=== PATIENT | female | born 1955 | race Caucasian/White ===

== ENCOUNTER 2017-11-13 07:04 | Emergency (ER) | payer OTHER ==
[~2017-11-13] VITALS: Ht 162.6 cm; Wt 55.8 kg
--- NOTE | 2017-11-13 09:11 | Diagnostic Imaging Report ---
RIGHT FOREARM X-RAY - 3 VIEWS, RIGHT FOREARM X-RAY, 2 views HISTORY: \S\TRIP FALL \[id number] \[id number] COMPARISON: None available. FINDINGS: Bones: No acute displaced fracture. Mild cortical irregularity within the dorsal aspect of the radius is seen only on one view and may be artifactual. Mild deformity of the scaphoid may be due to remote trauma. Osseous alignment is within normal limits. Joints: Degenerative changes of the first carpometacarpal joint. Soft tissues: The soft tissues appear unremarkable. IMPRESSION: No acute displaced fractures. Mild cortical irregularity of the proximal radius seen only on one view may be artifactual. If pain persists, consider repeat x-rays in 10 days with oblique views. Signed by: Dr. Kay Villarreal M.D. on 11/13/2017 9:07 AM
--- NOTE | 2017-11-13 09:11 | Diagnostic Imaging Report ---
RIGHT FOREARM X-RAY - 3 VIEWS, RIGHT FOREARM X-RAY, 2 views HISTORY: \S\TRIP FALL \[id number] \[id number] COMPARISON: None available. FINDINGS: Bones: No acute displaced fracture. Mild cortical irregularity within the dorsal aspect of the radius is seen only on one view and may be artifactual. Mild deformity of the scaphoid may be due to remote trauma. Osseous alignment is within normal limits. Joints: Degenerative changes of the first carpometacarpal joint. Soft tissues: The soft tissues appear unremarkable. IMPRESSION: No acute displaced fractures. Mild cortical irregularity of the proximal radius seen only on one view may be artifactual. If pain persists, consider repeat x-rays in 10 days with oblique views. Signed by: Dr. Kay Villarreal M.D. on 11/13/2017 9:07 AM
== END 2017-11-13 10:09 | disposition home or self-care (01) ==
LOC: ER 07:04
DX: S63.521A Sprain of radiocarpal joint of right wrist, initial encounter (principal); M32.9 Systemic lupus erythematosus, unspecified; I73.00 Raynaud's syndrome without gangrene
CPT/HCPCS: 99284

== ENCOUNTER 2023-05-20 08:30 | Inpatient (IN) | payer MEDICARE ==
[~2023-05-20] VITALS: Ht 162.6 cm; Wt 44.9 kg
[2023-05-20] MEDS ORDERED: ONDANSETRON HCL INJ 2MG/ML 2ML 2 MG/ML VIAL IV STA (08:41)
[2023-05-20] MEDS ORDERED: LACTATED RINGER'S 1,000 ML IV ONE (08:45)
[2023-05-20 10:17] LABS: BASOPHILS % 0.4 % (0.0-1.0); EOSINOPHILS % 0.6 % (0.0-6.0); HEMOGLOBIN 16.8 g/dL (12.0-16.0); LYMPHOCYTES # (AUTO) 0.9 (1.0-3.2); LYMPHOCYTES % 12.1 % (18.0-39.1); MEAN CORPUSCULAR HEMOGLOBIN 32.9 pg (28-32); MEAN CORPUSCULAR HGB CONC 39.1 g/dL (31-35); MEAN CORPUSCULAR VOLUME 84.1 fL (81-99); MONOCYTES # (AUTO) 0.6 (0.2-0.8); MONOCYTES % 8.4 % (4.4-11.3); NEUTROPHILS # (AUTO) 5.5 (2.1-6.9); NEUTROPHILS % 77.8 % (38.7-80.0); PLATELET COUNT 258 x10e3/uL (140-360); RED BLOOD COUNT 5.11 x10e6/uL (3.6-5.1); RED CELL DISTRIBUTION WIDTH 10.7 % (11.7-14.4); WHITE BLOOD COUNT 7.01 x10e3/uL (4.8-10.8)
[2023-05-20 10:45] LABS: CLARITY,URINE CLEAR (CLEAR); COLOR,URINE YELLOW (YELLOW); LEUKOCYTE ESTERASE ,URINE NEGATIVE (NEGATIVE); NITRITE,URINE NEGATIVE (NEGATIVE); PROTEIN,URINE DIPSTICK NEGATIVE (NEGATIVE)
[2023-05-20 10:46] LABS: BACTERIA,URINE MODERATE /HPF; EPITHELIAL CELLS,URINE FEW /LPF; KETONES,URINE 2+ (NEGATIVE); RBC,URINE 0-5 /HPF (0-5); URINE UROBILINOGEN 1 mg/dL (0.2 - 1); WBC,URINE (MAN) 0-5 /HPF (0-5)
[2023-05-20 10:49] LABS: ALANINE AMINOTRANSFERASE 23 IU/L (0-55); ALBUMIN 4.7 g/dL (3.5-5.0); ALBUMIN/GLOBULIN RATIO 1.6 (0.8-2.0); ALKALINE PHOSPHATASE 121 IU/L (40-150); ANION GAP 19.2 mmol/L (8-16); BLOOD UREA NITROGEN 12 mg/dL (7-26); BUN/CREATININE RATIO 16 (6-25); CALCIUM 10.7 mg/dL (8.4-10.2); CARBON DIOXIDE 20 mmol/L (22-29); CHLORIDE 92 mmol/L (98-107); CREATINE KINASE 77 IU/L (29-168); CREATININE, SERUM 0.74 mg/dL (0.57-1.11); GLUCOSE 114 mg/dL (74-118); POTASSIUM 4.2 mmol/L (3.5-5.1); SODIUM 127 mmol/L (136-145)
[2023-05-20] MEDS ORDERED: SODIUM CHLORIDE 0.9% 100 ML ONE (11:55)
[2023-05-20] MEDS ORDERED: IOPAMIDOL 370 MG/ML 100 ML INFUS..BTL INJ ONE (11:55)
[2023-05-20] MEDS ORDERED: METHYLPREDNISOLONE SOD SUCC 125 MG/2ML VIAL IV ONE (13:30)
[2023-05-20] MEDS ORDERED: ACETAMINOPHEN 325 MG TAB PO PRN (16:30)
[2023-05-20] MEDS ORDERED: LACTATED RINGER'S 1,000 ML INJ ONE (16:30)
[2023-05-20] MEDS ORDERED: HYDROXYCHLOROQ200 MG PO (16:56)
[2023-05-20] MEDS ORDERED: RIZATRIPTAN10 MG PO (16:56)
[2023-05-20] MEDS ORDERED: XANAX1 MG PO (16:56)
[2023-05-20] MEDS ORDERED: SODIUM CHLORI1000 M2 PO (16:56)
[2023-05-20] MEDS ORDERED: BUSPIRONE HCL10 MG PO (16:57)
[2023-05-20] MEDS ORDERED: vitamin d3 PO (16:57)
[2023-05-20] MEDS ORDERED: RELPAX40 MG PO (16:57)
[2023-05-20] MEDS ORDERED: DOXYCYCLINE HY100 MG PO (16:57)
[2023-05-20] MEDS ORDERED: VESICARE5 MG PO (16:57)
[2023-05-20] MEDS ORDERED: AZO D-MANNOSE500 MG PO (16:57)
[2023-05-20] MEDS ORDERED: OMEPRAZOLE40 MG PO (16:57)
[2023-05-20] MEDS ORDERED: TERAZOSIN HCL1 MG PO (16:57)
[2023-05-20] MEDS ORDERED: calcium supplement PO (16:57)
[2023-05-20] MEDS ORDERED: PROPRANOLOL HCL60 M1 PO (16:57)
[2023-05-20] MEDS ORDERED: SODIUM POLYSTY454 GM PO (16:57)
[2023-05-20] MEDS ORDERED: ALPRAZOLAM 0.25 MG TAB PO PRN (17:15)
[2023-05-20] MEDS ORDERED: HYDRALAZINE HCL 20 MG/ML VIAL IV PRN (17:15)
[2023-05-20 18:00] VITALS: BP 155/86; PULSE 78; RESP 18; TEMP 98.1; O2SAT 100
[2023-05-20 19:36] LABS: ALBUMIN 4.4 g/dL (3.5-5.0); ALBUMIN/GLOBULIN RATIO 1.8 (0.8-2.0); ANION GAP 14.5 mmol/L (8-16); CALCIUM 9.6 mg/dL (8.4-10.2); CREATININE, SERUM 0.82 mg/dL (0.57-1.11); POTASSIUM 4.5 mmol/L (3.5-5.1)
[2023-05-20 19:49] LABS: AMYLASE 44 U/L (25-125); LACTATE DEHYDROGENASE 221 IU/L (125-220); LIPASE 12 U/L (8-78)
[2023-05-20 20:00] VITALS: BP 150/93; PULSE 84; RESP 17; TEMP 98.2; O2SAT 99
[2023-05-20 20:50] VITALS: BP 150/93; PULSE 84; RESP 17; TEMP 98.2; O2SAT 99
[2023-05-20] MEDS ORDERED: CALCET TABLET1 EACH PO (21:36)
[2023-05-20] MEDS: SODIUM CHLORIDE 1 GM TAB PO SCH (21:44)
[2023-05-20] MEDS ORDERED: LACTATED RINGER'S 1,000 ML ONE (22:09)
[2023-05-21] VITALS (7 sets, daily range): BP systolic 129–162; BP diastolic 81–90; PULSE 62–74; RESP 14–18; TEMP 97.6–98.2; O2SAT 98–100
[2023-05-21] MEDS: SODIUM CHLORIDE 1 GM TAB PO SCH (05:43)
[2023-05-21] MEDS: ONDANSETRON HCL INJ 2MG/ML 2ML 2 MG/ML VIAL IV PRN (06:18)
[2023-05-21 07:26] LABS: BASOPHILS % 0.1 % (0.0-1.0); EOSINOPHILS % 0.1 % (0.0-6.0); HEMATOCRIT 36.4 % (34.2-44.1); LYMPHOCYTES # (AUTO) 0.9 (1.0-3.2); LYMPHOCYTES % 8.1 % (18.0-39.1); MEAN CORPUSCULAR HEMOGLOBIN 32.7 pg (28-32); MEAN CORPUSCULAR HGB CONC 38.5 g/dL (31-35); MONOCYTES # (AUTO) 0.8 (0.2-0.8); MONOCYTES % 7.2 % (4.4-11.3); NEUTROPHILS # (AUTO) 9.7 (2.1-6.9); NEUTROPHILS % 84.1 % (38.7-80.0); PLATELET COUNT 237 x10e3/uL (140-360); RED BLOOD COUNT 4.28 x10e6/uL (3.6-5.1); RED CELL DISTRIBUTION WIDTH 10.8 % (11.7-14.4); WHITE BLOOD COUNT 11.48 x10e3/uL (4.8-10.8)
[2023-05-21 07:52] LABS: ANION GAP 14.3 mmol/L (8-16); CALCIUM 9.1 mg/dL (8.4-10.2); CREATININE, SERUM 0.6 mg/dL (0.57-1.11); POTASSIUM 4.3 mmol/L (3.5-5.1)
[2023-05-21] MEDS ORDERED: ELETRIPTAN HYDROBROMIDE 40 MG TAB PO PRN (09:00)
[2023-05-21] MEDS ORDERED: PANTOPRAZOLE SOD 40 MG TABEC PO SCH (09:00)
[2023-05-21] MEDS ORDERED: TERAZOSIN HCL 1 MG CAP PO SCH (09:00)
[2023-05-21] MEDS: BUSPIRONE HCL 10 MG TABLET PO SCH ×2 (09:02→17:17)
[2023-05-21] MEDS: HYDROXYCHLOROQUINE SULFATE 200 MG TAB PO SCH ×2 (09:02→17:17)
[2023-05-21 15:06] LABS: ANION GAP 12.2 mmol/L (8-16); CREATININE, SERUM 0.74 mg/dL (0.57-1.11); POTASSIUM 4.2 mmol/L (3.5-5.1)
[2023-05-21] MEDS: SODIUM CHLORIDE 452MG TAB PO SCH ×3 (16:45→23:02)
[2023-05-21] MEDS: FAMOTIDINE 20 MG TAB PO SCH (17:17)
[2023-05-21] MEDS: TERAZOSIN HCL 1 MG CAP PO SCH (21:23)
[2023-05-22] VITALS (9 sets, daily range): BP systolic 115–144; BP diastolic 72–89; PULSE 56–62; RESP 16–18; TEMP 97.9–98.8; O2SAT 98–100
[2023-05-22] MEDS: SODIUM CHLORIDE 452MG TAB PO SCH ×3 (06:09→17:17)
[2023-05-22 07:47] LABS: BASOPHILS % 0.4 % (0.0-1.0); EOSINOPHILS # (AUTO) 0.1 (0.0-0.4); EOSINOPHILS % 1.1 % (0.0-6.0); HEMATOCRIT 41.1 % (34.2-44.1); HEMOGLOBIN 15.6 g/dL (12.0-16.0); LYMPHOCYTES # (AUTO) 1.3 (1.0-3.2); MEAN CORPUSCULAR HEMOGLOBIN 33.7 pg (28-32); MEAN CORPUSCULAR VOLUME 88.8 fL (81-99); MONOCYTES # (AUTO) 0.7 (0.2-0.8); MONOCYTES % 9.7 % (4.4-11.3); NEUTROPHILS # (AUTO) 5.2 (2.1-6.9); PLATELET COUNT 236 x10e3/uL (140-360); RED BLOOD COUNT 4.63 x10e6/uL (3.6-5.1); RED CELL DISTRIBUTION WIDTH 11.5 % (11.7-14.4); WHITE BLOOD COUNT 7.39 x10e3/uL (4.8-10.8)
[2023-05-22 08:12] LABS: ALBUMIN 4.4 g/dL (3.5-5.0); ALBUMIN/GLOBULIN RATIO 1.8 (0.8-2.0); ANION GAP 12.8 mmol/L (8-16); CALCIUM 9.4 mg/dL (8.4-10.2); CREATININE, SERUM 0.79 mg/dL (0.57-1.11); POTASSIUM 4.8 mmol/L (3.5-5.1)
[2023-05-22] MEDS: HYDROXYCHLOROQUINE SULFATE 200 MG TAB PO SCH ×2 (09:33→17:16)
[2023-05-22] MEDS: FAMOTIDINE 20 MG TAB PO SCH ×2 (09:33→17:16)
[2023-05-22] MEDS: BUSPIRONE HCL 10 MG TABLET PO SCH ×2 (09:33→17:16)
[2023-05-22] MEDS: ONDANSETRON HCL INJ 2MG/ML 2ML 2 MG/ML VIAL IV PRN (12:48)
[2023-05-22] MEDS: TERAZOSIN HCL 1 MG CAP PO SCH (22:19)
[2023-05-23] VITALS (8 sets, daily range): BP systolic 137–149; BP diastolic 84–92; PULSE 58–73; RESP 17–20; TEMP 97.7–98.4; O2SAT 100
[2023-05-23] MEDS: SODIUM CHLORIDE 452MG TAB PO SCH ×5 (00:54→21:59)
[2023-05-23] MEDS: FAMOTIDINE 20 MG TAB PO SCH ×2 (09:04→16:47)
[2023-05-23] MEDS: BUSPIRONE HCL 10 MG TABLET PO SCH ×2 (09:04→16:47)
[2023-05-23] MEDS: HYDROXYCHLOROQUINE SULFATE 200 MG TAB PO SCH ×2 (09:04→16:47)
[2023-05-23] MEDS: ONDANSETRON HCL INJ 2MG/ML 2ML 2 MG/ML VIAL IV PRN ×2 (10:37→16:47)
[2023-05-23] MEDS ORDERED: PROMETHAZINE 12.5MG/ NACL 0.9% 12.5 MG/50 ML BAG IV PRN (17:00)
[2023-05-23] MEDS ORDERED: POLYETHYLENE GLYCOL 3350 17 GM PACK PO PRN (17:00)
[2023-05-23] MEDS: SODIUM CHLORIDE 0.9% 1000ML 1,000 ML IV SCH (17:27)
[2023-05-23] MEDS: PROPRANOLOL HCL 10 MG TAB PO SCH (17:28)
[2023-05-23] MEDS: TERAZOSIN HCL 1 MG CAP PO SCH (22:00)
[2023-05-24] VITALS (8 sets, daily range): BP systolic 113–146; BP diastolic 71–91; PULSE 58–73; RESP 16–18; TEMP 97.7–98.4; O2SAT 97–100
[2023-05-24] MEDS: SODIUM CHLORIDE 0.9% 1000ML 1,000 ML IV SCH ×3 (03:39→20:40)
[2023-05-24 05:28] LABS: BASOPHILS % 0.5 % (0.0-1.0); EOSINOPHILS # (AUTO) 0.2 (0.0-0.4); EOSINOPHILS % 4.1 % (0.0-6.0); HEMATOCRIT 36.6 % (34.2-44.1); HEMOGLOBIN 13.6 g/dL (12.0-16.0); LYMPHOCYTES # (AUTO) 1.2 (1.0-3.2); LYMPHOCYTES % 21.9 % (18.0-39.1); MEAN CORPUSCULAR HEMOGLOBIN 32.9 pg (28-32); MEAN CORPUSCULAR HGB CONC 37.2 g/dL (31-35); MEAN CORPUSCULAR VOLUME 88.4 fL (81-99); MONOCYTES # (AUTO) 0.8 (0.2-0.8); MONOCYTES % 15.1 % (4.4-11.3); NEUTROPHILS # (AUTO) 3.2 (2.1-6.9); PLATELET COUNT 217 x10e3/uL (140-360); RED BLOOD COUNT 4.14 x10e6/uL (3.6-5.1); RED CELL DISTRIBUTION WIDTH 11.1 % (11.7-14.4); WHITE BLOOD COUNT 5.56 x10e3/uL (4.8-10.8)
[2023-05-24] MEDS: SODIUM CHLORIDE 452MG TAB PO SCH ×4 (05:43→23:41)
[2023-05-24 06:25] LABS: ANION GAP 9.6 mmol/L (8-16); CALCIUM 8.8 mg/dL (8.4-10.2); CREATININE, SERUM 0.73 mg/dL (0.57-1.11); MAGNESIUM 1.9 MG/DL (1.3-2.1); PHOSPHORUS 3.5 MG/DL (2.3-4.7); POTASSIUM 4.6 mmol/L (3.5-5.1)
[2023-05-24] MEDS: HYDROXYCHLOROQUINE SULFATE 200 MG TAB PO SCH ×2 (08:47→17:59)
[2023-05-24] MEDS: BUSPIRONE HCL 10 MG TABLET PO SCH ×2 (08:48→17:58)
[2023-05-24] MEDS: FAMOTIDINE 20 MG TAB PO SCH ×2 (08:48→17:59)
[2023-05-24] MEDS: PROPRANOLOL HCL 10 MG TAB PO SCH ×2 (08:48→17:59)
[2023-05-24] MEDS: THIAMINE HCL INJ 100 MG/ML 2ML VIAL IV SCH (12:47)
[2023-05-24] MEDS: TERAZOSIN HCL 1 MG CAP PO SCH (20:40)
[2023-05-25 00:22] VITALS: BP 106/71; PULSE 51; RESP 16; TEMP 97.4; O2SAT 100
[2023-05-25] MEDS: SODIUM CHLORIDE 452MG TAB PO SCH (05:26)
[2023-05-25 06:44] LABS: ANION GAP 10.1 mmol/L (8-16); CALCIUM 8.8 mg/dL (8.4-10.2); CREATININE, SERUM 0.7 mg/dL (0.57-1.11); POTASSIUM 5.1 mmol/L (3.5-5.1)
[2023-05-25 08:29] VITALS: BP 146/89; PULSE 60; RESP 18; TEMP 97.8; O2SAT 100
[2023-05-25] MEDS ORDERED: VITAMIN B-1250 MG PO (09:03)
[2023-05-25] MEDS ORDERED: HYTRIN1 M1 PO (09:03)
[2023-05-25] MEDS ORDERED: ONDANSETRON ODT4 MG PO (09:03)
[2023-05-25 09:10] VITALS: BP 146/89; PULSE 60; RESP 18; TEMP 97.8; O2SAT 100
[2023-05-25] MEDS: FAMOTIDINE 20 MG TAB PO SCH (09:26)
[2023-05-25] MEDS: BUSPIRONE HCL 10 MG TABLET PO SCH (09:26)
[2023-05-25] MEDS: HYDROXYCHLOROQUINE SULFATE 200 MG TAB PO SCH (09:26)
[2023-05-25 09:27] VITALS: BP 146/89
[2023-05-25] MEDS: PROPRANOLOL HCL 10 MG TAB PO SCH (09:27)
[2023-05-25] MEDS: THIAMINE HCL INJ 100 MG/ML 2ML VIAL IV SCH (09:27)
== END 2023-05-25 12:00 | disposition home or self-care (01) | DRG 640 ==
LOC: ER 08:36 → ERHOLD 13:47 → MED/SURG3 17:29
PROVIDERS: ADMIT Internal Medicine; ATTEND Internal Medicine
DX: E87.1 Hypo-osmolality and hyponatremia (principal); G93.41 Metabolic encephalopathy; E87.20 Acidosis, unspecified; R42 Dizziness and giddiness; G31.84 Mild cognitive impairment of uncertain or unknown etiology; R53.1 Weakness; R26.2 Difficulty in walking, not elsewhere classified; G43.909 Migraine, unspecified, not intractable, without status migrainosus; M32.9 Systemic lupus erythematosus, unspecified; J98.4 Other disorders of lung; U09.9 Post COVID-19 condition, unspecified; I10 Essential (primary) hypertension; E87.5 Hyperkalemia; I34.1 Nonrheumatic mitral (valve) prolapse; E86.0 Dehydration; I73.00 Raynaud's syndrome without gangrene; M19.90 Unspecified osteoarthritis, unspecified site; Z79.899 Other long term (current) drug therapy; Z20.822 Contact with and (suspected) exposure to COVID-19
CPT/HCPCS: 0223U; 36415; 70496; 70498; 70551; 71046; 76700; 80048; 80053; 81001; 82140; 82150; 82533; 82550; 82977; 83010; 83615; 83690; 83735; 83880; 83935; 84100; 84300; 84443; 84484; 85025; 86039; 86160; 86431; 87400; 92523; 93005; 95819; 96361; 99285; J2405; J2550; J2930; J3411; J7030; J7050; Q9967

== ENCOUNTER → 2025-04-01 | Outpatient (REF) | payer MEDICARE ==
[~2025-04-01] MED LIST: AZO D-MANNOSE500 MG PO; BUSPIRONE HCL10 MG PO; CALCET TABLET1 EACH PO; DOXYCYCLINE HY100 MG PO; HYDROXYCHLOROQ200 MG PO; HYTRIN1 M1 PO; IOPAMIDOL 370 MG/ML 100 ML INFUS..BTL INJ ONE; OMEPRAZOLE40 MG PO; ONDANSETRON ODT4 MG PO; PROPRANOLOL HCL60 M1 PO; RELPAX40 MG PO; RIZATRIPTAN10 MG PO; SODIUM CHLORI1000 M2 PO; SODIUM POLYSTY454 GM PO; TERAZOSIN HCL1 MG PO; VESICARE5 MG PO; VITAMIN B-1250 MG PO; XANAX1 MG PO; calcium supplement PO; vitamin d3 PO
[2025-04-01 08:40] LABS: EST GLOMERULAR FILTRATION RATE 97.0 ML/MIN (>=60)
== END ==
LOC: CT 07:19
PROVIDERS: ATTEND Internal Medicine
DX: R79.1 Abnormal coagulation profile (principal)
CPT/HCPCS: 36415; 71260; 82565; 84520; Q9967